=== PATIENT | male | born 1980 | race Caucasian/White ===

== ENCOUNTER 2016-08-25 17:03 | Emergency (ER) | payer OTHER ==
[2016-08-25 17:28] VITALS: BP 107/67
--- NOTE | 2016-08-25 17:52 | PHYS DOC ---
Past Medical History Past Medical History: No Pertinent History Past Surgical History: No Surgical History Additional Information: 1 ppd Alcohol Use: Heavy Additional Information: 6 pack per day Drug Use: None Adult General Chief Complaint Chief Complaint: BACK PAIN - NO INJURY HPI HPI Patient is a 36 year old male who presents emergency room with a complaint of atraumatic right upper back pain that began approximately an hour to an hour and a half ago. Patient states that he just hung up, talking to his employer. He states that he was rotating over his left sided reaching with his right arm when he felt sudden onset of pain around the medial aspect of his right shoulder blade in his upper shoulder. He denies any shortness of breath. He denies any chest pain. Denies any radiation of the pain. Patient denies any history of cardiac disease. He denies any history of previous PEs or DVTs. Denies any history of musculoskeletal disease. Review of Systems Review of Systems Constitutional: Denies fever or chills [] Eyes: Denies change in visual acuity, redness, or eye pain [] HENT: Denies nasal congestion or sore throat [] Respiratory: Denies cough or shortness of breath [] Cardiovascular: No additional information not addressed in HPI [] GI: Denies abdominal pain, nausea, vomiting, bloody stools or diarrhea [] : Denies dysuria or hematuria [] Musculoskeletal: Denies back pain or joint pain [] Integument: Denies rash or skin lesions [] Neurologic: Denies headache, focal weakness or sensory changes [] Endocrine: Denies polyuria or polydipsia [] Current Medications Current Medications Current Medications Medications (Trade) Dose Ordered Sig/[facility] Start Time Stop Time Status Last Admin Dose Admin Ketorolac Tromethamine (Toradol Im) 60 mg 1X ONCE 08/25/16 18:00 08/25/16 18:29 DC 08/25/16 18:00 60 MG Allergies Allergies Allergies Coded Allergies Type Severity Reaction Last Updated Verified No Known Drug Allergies 08/25/16 No Physical Exam Physical Exam Constitutional: Well developed, well nourished, mild distress, non-toxic appearance. HENT: Normocephalic, atraumatic, bilateral external ears normal, oropharynx moist, no oral exudates, nose normal. [] Eyes: PERRLA, EOMI, conjunctiva normal, no discharge. [] Neck: Normal range of motion, no tenderness, supple, no stridor. Cardiovascular:Heart rate regular rhythm, no murmur [] Lungs & Thorax: Bilateral breath sounds clear to auscultation [] Abdomen: Bowel sounds normal, soft, no tenderness, no masses, no pulsatile masses. [] Skin: Warm, dry, no erythema, no rash. Back: Back is normal in appearance. There is focal tenderness to palpation to the medial aspect of the right shoulder blade area consistent with a rhomboid strain. There is no palpable defect or spasm. Extremities: No tenderness, no cyanosis, no clubbing, ROM intact, no edema. [] Neurologic: Alert and oriented X 3, normal motor function, normal sensory function, no focal deficits noted. [] Psychologic: Affect normal, judgement normal, mood normal. [] Current Patient Data Vital Signs Vital Signs Date Time Temp Pulse Resp B/P Pulse Ox O2 Delivery O2 Flow Rate FiO2 08/25/16 17:28 98.3 67 20 100 Room Air 98.3 EKG EKG [] Radiology/Procedures Radiology/Procedures [] Course & Med Decision Making Course & Med Decision Making Pertinent Labs and Imaging studies reviewed. (See chart for details) [] Dragon Disclaimer Dragon Disclaimer This electronic medical record was generated, in whole or in part, using a voice recognition dictation system. Departure Departure Impression: Primary Impression: Thoracic myofascial strain Disposition: 01 HOME, SELF-CARE Condition: GOOD Referrals: CHIN SALCEDO MD Patient Instructions: Thoracic Strain, [id number] Additional Instructions: 1. Take the medication as prescribed. 2. Review the discharge paperwork provided for self-care and reasons to return the emergency department. 3. Avoid lifting more than 20 pounds or overhead lifting for the next week. 4. Contact Dr. Salcedo's office in the morning to schedule follow-up appointment. Scripts Orphenadrine Citrate 100 Mg Tablet.er100 Mg PO twice a day muscle relaxer #14 Prov:MIROSLAVA MALONEY 08/25/16 Hydrocodone/Apap 5-325 ([place] 5-325 Tablet)1 Each Tablet1 Tab PO PRN Q6HRS PRN breakthrough pain #15 TAB Prov:MIROSLAVA MALONEY 08/25/16 Naproxen Sodium (Anaprox Ds)550 Mg [id number] Mg PO twice a day #20 Prov:MIROSLAVA MALONEY 08/25/16 MIROSLAVA MALONEY Aug 25, 2016 17:52
[2016-08-25] MEDS ORDERED: KETOROLAC TROMETHAMINE 60 MG/2 ML SYRINGE. IM ONE (18:00)
[2016-08-25] MEDS ORDERED: NAPR550T PO (18:11)
[2016-08-25] MEDS ORDERED: ORPH100T PO (18:11)
[2016-08-25] MEDS ORDERED: HYDR-971 PO (18:11)
== END 2016-08-25 18:45 | disposition home or self-care (01) ==
LOC: ER 18:39
DX: S29.012A Strain of muscle and tendon of back wall of thorax, initial encounter (principal); F17.200 Nicotine dependence, unspecified, uncomplicated; X50.9XXA Other and unspecified overexertion or strenuous movements or postures, initial encounter; Y93.89 Activity, other specified; Y92.89 Other specified places as the place of occurrence of the external cause; Y99.8 Other external cause status
CPT/HCPCS: 96372; 99283; J1885

== ENCOUNTER 2017-03-26 08:00 | Day surgery (SDC) | payer OTHER ==
[~2017-03-26] VITALS: Ht 182.9 cm; Wt 101.6 kg
[~2017-03-26 08:00] MED LIST: HYDR-971 PO; HYDROmorphone 2 MG/ML VIAL IV PRN; IV RINGERS,LACTATED 1000ML 1,000 ML IV SCH; LIDOCAINE 1% 1 ML SYRINGE. ID PRN; NAPR-682 PO; ONDANSETRON PF 4 MG/2 ML VIAL. IV PRN; ORPH100T PO; PROCHLORPERAZINE 10 MG/2 ML VIAL. IV PRN; fentaNYL PF VIAL 100 MCG/2 ML VIAL IV PRN
[2017-03-26] MEDS ORDERED: GELATIN MUCOSAL POWDER. ONE (09:08)
[2017-03-26] MEDS ORDERED: BUPIVACAINE-EPI 0.5%-1:200000 50 ML VIAL. ONE (09:08)
[2017-03-26] MEDS ORDERED: fentaNYL PF VIAL 100 MCG/2 ML VIAL ONE ×3 (09:20→12:04)
[2017-03-26] MEDS ORDERED: MIDAZOLAM HCL/PF 2 MG/2 ML VIAL. ONE (09:20)
[2017-03-26] MEDS ORDERED: LIDOCAINE 2% PF Vial for OR 5 ML VIAL. ONE (09:21)
[2017-03-26] MEDS ORDERED: ROCURONIUM 100 MG/10 ML VIAL. ONE (09:21)
[2017-03-26] MEDS ORDERED: PROPOFOL 20 ML IV ONE (09:21)
[2017-03-26] MEDS ORDERED: ONDANSETRON PF 4 MG/2 ML VIAL. ONE (09:21)
[2017-03-26] MEDS ORDERED: DEXAMETHASONE SOD PHOS 20 MG/5 ML VIAL. ONE (09:21)
[2017-03-26] MEDS ORDERED: GLYCOPYRROLATE 1 MG/5 ML VIAL. ONE (10:50)
[2017-03-26] MEDS ORDERED: NEOSTIGMINE 10 MG/10 ML VIAL. ONE (10:50)
[2017-03-26] MEDS ORDERED: SEVOFLURANE 61 TO 120 MINUTES. IH ONE (10:53)
[2017-03-26] MEDS: fentaNYL PF VIAL 100 MCG/2 ML VIAL IV PRN ×4 (11:15→12:22)
--- NOTE | 2017-03-26 11:19 | PDOC4 ---
Operative Note Operative Note Operative Note: Preoperative Diagnosis: Anal fistula Postoperative Diagnosis: Same Procedure: Anal exam under anesthesia, fistulotomy Surgeon: Mauro Anesthesia: Gen. EBL: 25 mL Specimen: Anal skin to pathology Drains: None Complications: None Indication: The patient is a 36-year-old gentleman with a history of intermittent pain and occasional drainage in the perianal region. Examination is suggestive of a possible fistula with a healed scar near the 2 o'clock position prone. Initially we elected for observation given what appeared to be healing of the area. His symptoms returned however and he would like to proceed for operative intervention. The plan is to proceed with an exam under anesthesia and possible fistulotomy. The details and risks of surgery were discussed. The risks include bleeding, infection, incontinence, pain, recurrence , potential need for additional surgery or procedure. He understands and would like to proceed. Description: The patient was taken to the operating room and placed supine on the operating table. Gen. anesthesia was performed. He was then placed in prone jackknife. The perianal region was prepped with Betadine and draped in a standard surgical manner. Initial examination showed a deep healed slightly inverted scar at the 2 o'clock position corresponding to his areas of intermittent symptoms. A digital rectal examination showed no clear abnormalities or anal masses. With lubrication and a speculum the anal canal was visualized. There was one area corresponding to the 2 o'clock position in the anal canal that appeared suspicious for a possible fistula source. There was no active drainage or acute infection. I excised the area of scar at the 2 o 'clock position and the perianal skin. With a probe there appeared to be a subcutaneous tract that was in continuity with the suspected anal fistula source. The tract was fairly superficial involving minimal sphincter musculature. The tract was opened using electrocautery. Several small bleeding points were controlled with cautery. The entire tract was irrigated with sterile saline. Any areas of granulation tissue were also cauterized. Hemostasis was good. A sterile gauze dressing was then applied. The patient tolerated the procedure well and was sent to the recovery room in stable condition. Case all counts were correct. HAMZAH WOODS MD Mar 26, 2017 11:19
--- NOTE | 2017-03-26 11:22 | DISCH ---
DISCHARGE INSTRUCTIONS Condition on Discharge Condition on Discharge: Stable Activity After Discharge Activity Instructions for Disc: Activity as tolerated, Other, see below Driving Instructions after Dis: Other, see below (no driving while take pain medicine) Wound Incision Care Wound/Incision Care: Other, see below (remove gauze dressing daily, and as needed after bowel movements; the reapply clean gauze dressing to wound) Follow-Up Follow up with: Dr Woods in 2-3 weeks, call for appt [phone] HAMZAH WOODS MD Mar 26, 2017 11:21
[2017-03-26] MEDS ORDERED: OXYC-323 PO (11:45)
[2017-03-26] MEDS ORDERED: DOCU-109 PO (11:46)
[2017-03-26] MEDS ORDERED: MORPHINE SULFATE 2 MG/ML DISP.SYRIN. ONE (11:49)
[2017-03-26] MEDS: MORPHINE SULFATE 2 MG/ML DISP.SYRIN. IV PRN ×2 (11:53→12:03)
[2017-03-26] MEDS ORDERED: oxyCODONE/APAP 5/325 1 TAB TABLET PO ONE (12:00)
[2017-03-26 12:45] VITALS: BP 136/47
--- NOTE | 2017-03-27 13:46 | PATHOLOGY ---
PATHOLOGY REPORT * * * * * * * * FINAL DIAGNOSIS: Skin, "anal skin," excisional biopsy: - Dermal acute and chronic inflammation with numerous lymphocytes, plasma cells, and with surrounding fibrosis. - See comment. COMMENT: These findings could be secondary to the previous anal fistula. Suggest clinical correlation. (AI:; 03/27/2017) REPORT ELECTRONICALLY SIGNED BY: Bayron Thornton M.D. DATE/TIME: 03/27/2017 13:45 * * * * * * * * GROSS PATHOLOGY: The specimen is received in formalin, labeled "Nathan Franco, anal skin" and consists of a strip of brown schulz, wrinkled, rubbery skin and subcutaneous fibroadipose tissue measuring 1.2 x 0.8 x 0.4 cm. The skin surface shows no distinct abnormalities. The cut surface is pink-schulz and whorled. The specimen is serially sectioned and entirely submitted in cassette A1. ([facility]; 03/26/2017) INITIAL CPT CODE(S): A; 14198 Professional services performed [place] [email or web address] [place] [address] Technical services performed by [email or web address] at [address] [place] [address] [address], [place] [address]. SPECIMEN(S) RECEIVED: A.Anal skin CLINICAL HISTORY: History of anal fistula PATIENT: NATHAN FRANCO /AGE: 903/27/1980 (Age: 36) PATIENT #: [id number] ALT CASE #: SPECIMEN COLLECTION DATE: 03/26/2017 SPECIMEN RECEIVED DATE: 03/26/2017 [facility] - [address] [place] [address] - PHONE: [phone] * * * END OF REPORT * * *
== END 2017-03-26 13:00 | disposition home or self-care (01) ==
LOC: SURG 08:00
PROVIDERS: ATTEND Surgery
DX: K60.3 Anal fistula (principal); Z87.39 Personal history of other diseases of the musculoskeletal system and connective tissue; Z72.89 Other problems related to lifestyle; Z72.0 Tobacco use
CPT/HCPCS: 46270; 88304; J0690; J0780; J1100; J2250; J2270; J2405; J2704; J2710; J3010; J3490; J2001